=== PATIENT | male | born 1970 | race Hispanic/Latino ===

== ENCOUNTER 2017-11-16 13:08 | Emergency (ER) | payer OTHER ==
[2017-11-16 13:08] VITALS: BMI 32.3
[2017-11-16 13:18] VITALS: BP 143/99; PULSE 80; RESP 16; TEMP 98.4; O2SAT 100
[2017-11-16] MEDS ORDERED: Oxycodone/Acetaminophen 5/325 mg Tab PO STA (14:11)
--- NOTE | 2017-11-16 14:45 | ED PDOC ---
Lower Extremity Pain/Injury Time Seen by Provider: 11/16/17 13:08 Chief Complaint (Nursing): Trauma Chief Complaint (Provider): Trauma History Per: Patient History/Exam Limitations: no limitations Onset/Duration Of Symptoms: Hrs Current Symptoms Are (Timing): Still Present Additional Complaint(s): 47 year old male presents to the emergency department after he was at work and feel through a plank of wood and sustained an injury to the right lower leg prior to arrival. Reports he tried to stop himself from falling with his hands and now has abrasions to the arms. Denies any other injuries, numbness, head injury, neck pain, or back pain. Past Medical History Reviewed: Historical Data, Nursing Documentation, Vital Signs Vital Signs: Last Vital Signs Temp 98.4 F 11/16/17 13:15 Pulse 80 11/16/17 13:15 Resp 16 11/16/17 13:15 BP 143/99 H 11/16/17 13:15 Pulse Ox 100 11/16/17 13:15 - Medical History PMH: No Chronic Diseases Denies: Depression - Surgical History Surgical History: No Surg Hx - Family History Family History: States: Unknown Family Hx - Social History Current smoker - smoking cessation education provided: No Alcohol: None Drugs: Denies - Home Medications Home Medications: Ambulatory Orders Medication Instructions Recorded Acetaminophen/Oxycodone Hydr 1 tab PO Q8 #6 tab 05/23/13 [Percocet 325 mg-5 mg] Clonazepam [Klonopin] 0.5 mg PO 05/23/13 Zolpidem [Ambien] 10 mg PO 05/23/13 oxyCODONE/Acetaminophen [Percocet 1 ea PO TID PRN #12 tab 11/16/17 5/325 mg Tab] - Allergies Allergies/Adverse Reactions: Allergies Allergy/AdvReac Type Severity Reaction Status Date / Time morphine Allergy ITCHING Verified 11/16/17 13:15 tramadol Allergy DIZZINESS Verified 11/16/17 13:15 aspirin AdvReac VOMITING Verified 11/16/17 13:15 Review of Systems ROS Statement: Except As Marked, All Systems Reviewed And Found Negative (As per HPI, otherwise negative) Musculoskeletal: Positive for: Leg Pain (Right). Negative for: Neck Pain, Back Pain Skin: Positive for: Other (Abrasions to the arms noted) Neurological: Negative for: Numbness, Other (Head injury) Physical Exam - Reviewed Nursing Documentation Reviewed: Yes Vital Signs Reviewed: Yes - Physical Exam Appears: Positive for: Non-toxic, In Acute Distress (Moderate painful distress) Head Exam: Positive for: NORMAL INSPECTION Skin: Positive for: Normal Color, Warm, Dry Neck: Positive for: Normal, Painless ROM, Supple Cardiovascular/Chest: Positive for: Regular Rate, Rhythm. Negative for: Murmur Respiratory: Positive for: Normal Breath Sounds. Negative for: Accessory Muscle Use, Wheezing, Respiratory Distress Extremity: Positive for: Normal ROM (Normal range of motion to the arms and legs bilaterally. Abrasions noted to the medial aspect of the right arm), Tenderness (Moderate tenderness with some mild swelling to the right knee and right tib fib. ), Capillary Refill (Cap refill intact. Normal distal sensation. Normal pulses. ), Swelling. Negative for: Other (No tenderness or swelling to the arms bilaterally or left leg. ) Neurologic/Psych: Positive for: Alert, Oriented (x3) - ECG O2 Sat by Pulse Oximetry: 100 (RA) Pulse Ox Interpretation: Normal Medical Decision Making Medical Decision Making: Time: 1410 Initial impression: Right leg pain status post fall at work Initial plan: --Percocet 3/325 mg PO (2 tablets) --Right knee x-ray --Tibia Fibula Right x-ray --Reevaluation XR right knee: no fracture, no dislocation, as read by ALEXANDRO XR right tib-fib: no fracture, no dislocation, as read by ALEXANDRO Patient advised that official radiology read of XR is still pending and will call the patient if there is any discrepancy within 24 hours. X-ray results discussed with the patient in great detail. Angelo wrap and knee immobilizer applied to the right knee. Patient instructed on crutch walking. Based on history, exam and diagnostic results plan will be for outpatient follow -up. Follow up with workman's comp in 1-2 days without fail. Advised to take medication as prescribed. Return to the emergency room at any time for any new or worsening symptoms. Patient states he fully agrees with and understands discharge instructions. States that he agrees with the plan and disposition. Verbalized and repeated discharge instructions and plan. I have given the patient opportunity to ask any additional questions. Scribe Attestation: Documented by Alva Snider, acting as a scribe for Awilda Jose PA-C Provider Simonaibe Attestation: All medical record entries made by the Scribe were at my direction and personally dictated by me. I have reviewed the chart and agree that the record accurately reflects my personal performance of the history, physical exam, medical decision making, and the department course for this patient. I have also personally directed, reviewed, and agree with the discharge instructions and disposition. Disposition - Clinical Impression Clinical Impression: Contusion of knee, right, Contusion of leg, right - Patient ED Disposition Is Patient to be Admitted: No Counseled Patient/Family Regarding: Studies Performed, Diagnosis, Need For Followup, Rx Given - Disposition Disposition: Routine/Home Disposition Time: 15:05 Condition: STABLE Additional Instructions: Thank you for letting us take care of you today. You were treated for right knee and leg contusion, status post fall. The emergency medical care you received today was directed at your acute symptoms. If you were prescribed any medication, please fill it and take as directed. It may take several days for your symptoms to resolve. Return to the Emergency Department if your symptoms worsen, do not improve, or if you have any other problems. Please contact [facility]. doctor in 2 days for re-evaluation and follow up. Bring any paperwork you were given at discharge with you along with any medications you are taking to your follow up visit. Our treatment cannot replace ongoing medical care by a primary care provider (PCP) outside of the emergency department. Thank you for allowing the [facility] team to be part of your care today. If you had an X-Ray : A Radiologist will review the ED reading if any change in treatment is needed we will contact you. 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
--- NOTE | 2017-11-16 14:51 | RAD ---
PROCEDURE: Radiographs of the right tibia and fibula. HISTORY: pain COMPARISON: None available. TECHNIQUE: Frontal and lateral views obtained. FINDINGS: BONES: No fracture or destructive lesion. JOINT SPACES: Unremarkable. OTHER FINDINGS: None. IMPRESSION: Unremarkable radiographs of the right tibia and fibula.
--- NOTE | 2017-11-16 14:52 | RAD ---
PROCEDURE: Right Knee Radiographs. HISTORY: pain COMPARISON: None. FINDINGS: BONES: Normal. No fracture. JOINTS: Normal. No osteoarthritis. JOINT EFFUSION: None. OTHER FINDINGS: None. IMPRESSION: Normal radiographs of the right knee.
== END 2017-11-16 15:55 | disposition home or self-care (01) ==
LOC: H.ER 13:08
DX: S80.01XA Contusion of right knee, initial encounter (principal); S80.11XA Contusion of right lower leg, initial encounter; W19.XXXA Unspecified fall, initial encounter; Y99.0 Civilian activity done for income or pay